=== PATIENT | female | born 1995 | race African-American/Black ===

== ENCOUNTER 2024-01-18 20:07 | Emergency (ER) | payer BC, SELFPAY ==
[2024-01-18 20:18] VITALS: BP 132/90; PULSE 104; TEMP 37.2; O2SAT 98; BMI 23.2
[2024-01-18 21:26] LABS: Influenza Virus A Antigen Negative; Influenza Virus B Antigen Negative; Internal Control Within Normal Limits
[2024-01-18 21:27] LABS: Internal Control Within Normal Limits; SARS-CoV-2 Ag NEGATIVE (NEGATIVE)
--- NOTE | 2024-01-18 21:34 | ED.URI1 ---
HPI - URI/Sore Throat General Chief Complaint: Upper Respiratory Infection Stated Complaint: cough Time Seen by Provider: 01/18/24 21:05 Source: patient Limitations: no limitations History of Present Illness HPI Narrative: Patient is a 28-year-old female who presents to the emergency department for a 1 day history of fever although she states she has had upper respiratory symptoms for the last 3 weeks intermittently. Her son was diagnosed with walking pneumonia . She was concerned she may have the same. She denies a possibility of . No medications taken prior to arrival. She arrives to the ER afebrile. She reports mucus production with coughing, no hemoptysis. Related Data Home Medications ?Medication ?Instructions ?Recorded ?Confirmed No Known Home Medications 01/18/24 01/18/24 Previous Rx's ?Medication ?Instructions ?Recorded ausefwxcgwpcdmd-twzixhmlaprnyvg-NT 10 ml PO Q6H PRN cold symptoms 01/18/24 2 mg-30 mg-10 mg/5 mL oral syrup #200 mL (Bromfed DM) cefdinir 300 mg capsule 300 mg PO BID 10 days #20 caps 01/18/24 methylprednisolone 4 mg tablets in See Rx Instructions .Route 01/18/24 a dose pack (Medrol (Clyde)) .COMPLEX #21 ea Allergies Allergy/AdvReac Type Severity Reaction Status Date / Time amoxicillin Allergy Mild Rash Verified 01/18/24 20:18 Penicillins Allergy Mild rash Verified 01/18/24 20:18 Review of Systems ROS Constitutional Reports: fever and chills Ears, nose, mouth, and throat Reports: nasal congestion; Denies: throat pain Cardiovascular Denies: chest pain Respiratory Reports: cough; Denies: shortness of breath Gastrointestinal Denies: nausea or vomiting Musculoskeletal Denies: back pain or neck pain Integumentary/Breast Denies: rash Neurological Denies: numbness in extremities or weakness in extremities Hematologic/Lymphatic Denies: easy bruising or easy bleeding PFSH PFSH Social History Little interest or pleasure in doing things: not at all Feeling down, depressed, or hopeless: not at all Exam Narrative Exam Narrative: Gen.: Awake, alert, in no distress Head: Normocephalic, atraumatic ENT: Moist mucous membranes, bilateral TMs are fluid-filled, no pharyngeal erythema Respiratory: No respiratory distress, lungs clear bilaterally; harsh cough noted with no wheezing or rhonchi Cardio: Regular rate and rhythm Extremities: Moves extremities equally Psych: Normal mood and affect Neuro: No focal neuro deficit Skin: Warm, dry, intact Constitutional Vital Signs, click to edit/add: Last Vital Signs Temp 99.0 F 01/18/24 20:18 Pulse 104 H 01/18/24 20:18 Resp 20 01/18/24 20:18 BP 132/90 01/18/24 20:18 Pulse Ox 98 01/18/24 20:18 O2 Del Method Room Air 01/18/24 20:18 Course Vital Signs Vital signs: Vital Signs Temperature 99.0 F 01/18/24 20:18 Pulse Rate 104 H 01/18/24 20:18 Respiratory Rate 20 01/18/24 20:18 Blood Pressure 132/90 01/18/24 20:18 Pulse Oximetry 98 01/18/24 20:18 Oxygen Delivery Method Room Air 01/18/24 20:18 Temperature 99.0 F 01/18/24 20:18 Pulse Rate 104 H 01/18/24 20:18 Respiratory Rate 20 01/18/24 20:18 Blood Pressure 132/90 01/18/24 20:18 Pulse Oximetry 98 01/18/24 20:18 Oxygen Delivery Method Room Air 01/18/24 20:18 MDM - URI/Sore Throat MDM Narrative Medical decision making narrative: Patient is negative for influenza, COVID. She is hemodynamically stable. Discussed with her that she will be treated based on the duration of her symptoms with antibiotics, steroids and cough medication. Discussed deferring a chest x-ray as it will not address change clerk based on her vital signs and clinical presentation and the patient and her significant other would like to defer chest x-ray at this time. Follow-up with PCP and return to the emergency department if symptoms change or worsen. Medical Records Attestation: I reviewed the patient's medical records. Lab Data Attestation: I reviewed the patient's lab results. Labs: Lab Results 01/18/24 Range/Units 20:27 Influenza Type A Ag Negative Influenza Type B Ag Negative SARS-CoV-2 Ag (CV2AG) Negative (NEGATIVE) Discharge Plan Discharge Chief Complaint: Upper Respiratory Infection Clinical Impression: Upper respiratory infection Patient Disposition: Home, Self-Care Time of Disposition Decision: 21:33 Condition: Good Prescriptions / Home Meds: New methylprednisolone [Medrol (Clyde)] 4 mg tablets,dose pack See Rx Instructions .ROUTE .COMPLEX Qty: 21 0RF Rx Instructions: Taper as directed fpmsjrqkokhqlry-wxrdfsrzk-DV [Bromfed DM] 2-30-10 mg/5 mL syrup 10 ml PO Q6H PRN (Reason: cold symptoms) Qty: 200 0RF cefdinir 300 mg capsule 300 mg PO BID 10 Days Qty: 20 0RF No Action No Known Home Medications Print Language: Turkish Instructions: Upper Respiratory Infection (ED) Referrals: Physician,Non-Staff, MD [Primary Care Provider] - 1 week
[2024-01-18] MEDS: HYDROCODONE BIT/HOMATROP 5 MG/1.5 MG TABLET 1 TAB PO (21:59)
[2024-01-18] MEDS: PREDNISONE 20 MG TABLET 60 MG PO (22:00)
[2024-01-18] MEDS: CEFDINIR 300 MG CAPSULE 600 MG PO (22:11)
[2024-01-18 22:14] VITALS: BP 127/84; PULSE 84; O2SAT 98
== END 2024-01-18 22:15 | disposition home or self-care (01) ==
PROVIDERS: Emergency Provider Internal Medicine
DX: J06.9 Acute upper respiratory infection, unspecified (principal); Z20.822 Contact with and (suspected) exposure to COVID-19
CPT/HCPCS: 87804; 87811; 99284; J7512